=== PATIENT | female | born 1990 | race African-American/Black ===

== ENCOUNTER 2025-01-09 07:26 | Emergency (ER) | payer OTHER, SELFPAY ==
[2025-01-09 07:28] VITALS: BP 129/75
--- NOTE | 2025-01-09 09:19 | ED.GENMED ---
History of Present Illness
General
Chief Complaint: Skin Surface Trauma
Source: patient
Exam Limitations: none
Time Seen by Provider: 01/09/25 08:58
History of Present Illness
History of Present Illness:
34yo [id number] female presenting for evaluation of a left index finger laceration that was sustained 2 days ago. Patient was repairing glasses with a knife when she excellently cut herself on the palmar aspect of the index finger. She was
seen at urgent care yesterday for the symptoms and was sent to the ED for evaluation. No active bleeding on arrival. No paresthesias. Unknown last Tdap.
Phy Exam
General Physical Exam
General Presentation: well appearing and no apparent distress
General Skin: warm and dry
General Habitus: normal
General Mental: alert
ENT Exam
ENT Exam: normocephalic
Pulmonary Exam
Pulmonary Exam: no respiratory distress
Neurological Exam
Neurological Exam: alert
[place] Coma Scale
Eye Opening: Spontaneous
Verbal Response: Oriented
Motor Response: Obeys Commands
GCS Total Score: 15
Musculoskeletal Exam
Musculoskeletal Exam: other (L index finger: 1cm laceration noted at the palmar aspect of the digit near DIP joint. Subcutaneous issue exposed. No active bleeding. ROM of DIP and PIP joints intact. Cap refill and sensation intact at distal
fingertip. )
Skin Exam
Skin Exam: warm/dry
Psychiatric Exam
Psychiatric Exam: normal mood/affect
Course
Orders/Labs/Results
Orders:
Orders
01/09/25 09:18
Aluminium Finger Splint Left ONCE
Tetanus/Diphth/Acelpertussis [Adacel] 0.5 ml IM .ONCE ONE
Vital Signs
Initial and Last Documented VS:
Initial Vital Signs
Temp Pulse Resp BP Pulse Ox
98.4 F 62 16 129/75 98
01/09/25 07:28 01/09/25 07:28 01/09/25 07:28 01/09/25 07:28 01/09/25 07:28
Last Documented Vital Signs
Temp Pulse Resp BP Pulse Ox
98.6 F 82 20 136/81 99
01/09/25 09:28 01/09/25 09:28 01/09/25 09:28 01/09/25 09:28 01/09/25 09:28
MDM/Problems Addressed
Differential Diagnosis Includes:
34yoF here for a L index finger laceration. 1cm laceration noted with subcutaneous tissue exposed. No clinical evidence of tendon or neurovascular injury. Wound debrided and topical antibiotic ointment/bandage applied. Unable to formally close wound
as laceration was sustained 2 days ago. Will allow wound to heal by secondary intention. Tdap updated. Home wound care discussed and advised return to the ED with any signs of infection.
*Pulse Oximetry
SaO2: 98
Oxygen Mode of Delivery: Room air
Patient hypoxic: no
*Critical Care Note
Total Time (30-74mins, 75-104mins- exclusive of procedures): Not Applicable
ED Attending Note
-
Portions of this chart may have been created with voice recognition software.� Occasional wrong word or��sound alike� substitutions may have occurred due to the inherent limitations of voice recognition software.
Discharge Plan
Departure
Patient Disposition: Home (Routine Discharge)
Date of Disposition: 01/09/25
Time of Disposition: 09:20
Patient with high blood pressure during this ER visit?: No
Discharge Problem:
Laceration of left index finger
Instructions: Taking care of cuts, scrapes, and puncture wounds
Prescriptions:
No Action
No Current Medications
0
Activity Restrictions/Additional Instructions:
Keep wound clean and dry. Wear finger splint as needed to help keep finger straight.
Return to the ER with any signs of infection (redness, warmth, drainage, fevers).
Interventions
Interventions:
*Risk Screen - Suicide Last Done: 01/09/25 07:28
*General Assessment Last Done: 01/09/25 09:28
*Neglect/Abuse Screening Last Done: 01/09/25 07:28
*ED- Fall Risk Assessment Last Done: 01/09/25 09:28
*ED COVID-19 Vaccine History Last Done: 01/09/25 09:28
*ED Influenza Vaccine History Last Done: 01/09/25 09:28
*Nursing Disposition Last Done: 01/09/25 10:07
ED-Skin Assessment Last Done: 01/09/25 09:28
Discharge Date and Time
Discharge Date/Time: 01/09/25 10:08
Print Language: INDONESIAN
[2025-01-09 09:28] VITALS: BP 136/81; BMI 26.7
[2025-01-09] MEDS: ADACEL 0.5 ML IM (09:38)
== END 2025-01-09 10:08 | disposition home or self-care (01) ==
LOC: EMR 07:26
PROVIDERS: EMERGENCY PHYSICIAN Emergency Medicine; FAMILY PHYSICIAN Family Medicine
DX: S61.211A Laceration without foreign body of left index finger without damage to nail, initial encounter (principal); W26.0XXA Contact with knife, initial encounter; Z23 Encounter for immunization
CPT/HCPCS: 99282; 90471; 26725; 90715